=== PATIENT | female | born 1985 | race Caucasian/White ===

== ENCOUNTER 2021-03-20 15:22 | Outpatient (CLI) | payer BC | END 2021-03-20 15:23 | disposition home or self-care (01) | LOC: LAB 15:22 | PROVIDERS: ATTEND Nurse Practitioner Obstetrics & Gynecology | DX: O03.9 Complete or unspecified spontaneous abortion without complication (principal) | CPT/HCPCS: 36415; 84702 ==

== ENCOUNTER 2021-05-30 13:37 | Outpatient (CLI) | payer BC ==
[2021-05-30 16:09] LABS: MUDS CUTOFF CONCENTRATIONS CUTOFF CONC BELOW:
[2021-05-30 16:27] LABS: BILIRUBIN,URINE NEGATIVE (NEGATIVE); GLUCOSE, URINE (UA) NEGATIVE (NEGATIVE); KETONES,URINE (UA) NEGATIVE (NEGATIVE); LEUKOCYTE ESTERASE, URINE TRACE (NEGATIVE); NITRITE,URINE NEGATIVE (NEGATIVE); OCCULT BLOOD,URINE NEGATIVE (NEGATIVE); PROTEIN,URINE NEGATIVE (NEGATIVE); UROBILINOGEN,URINE 0.2 (NORMAL) E.U./dL (NORMAL)
[2021-05-30 16:46] LABS: BACTERIA,URINE None Seen /HPF (None Seen); CLARITY,URINE CLEAR (CLEAR); RBC,URINE None Seen /HPF (0-5); SQUAMOUS EPITHELIAL CELL,UR MOD Squamous (<= Few); WBC,URINE 0-3 /HPF (0-5)
[2021-05-30 16:47] LABS: AMPHETAMINE SCREEN,URINE NEGATIVE (NEGATIVE); BARBITURATE SCREEN,UR NEGATIVE (NEGATIVE); BENZODIAZEPINES SCREEN, URINE NEGATIVE (NEGATIVE); COCAINE SCREEN URINE NEGATIVE (NEGATIVE); METHADONE SCREEN, URINE NEGATIVE (NEGATIVE); METHAMPHETAMINES SCREEN, URINE NEGATIVE (NEGATIVE); OPIATE SCREEN, URINE NEGATIVE (NEGATIVE); OXYCODONE SCREEN, URINE NEGATIVE (NEGATIVE); PROPOXYPHENE SCREEN, URINE NEGATIVE (NEGATIVE); THC CANNABINOID SCREEN, URINE NEGATIVE (NEGATIVE); TRICYCLIC ANTIDEPRESSANT,URINE NEGATIVE (NEGATIVE)
== END 2021-05-30 23:59 | disposition home or self-care (01) ==
LOC: LAB.WC 13:37
PROVIDERS: ATTEND Obstetrics & Gynecology
DX: Z32.01 Encounter for pregnancy test, result positive (principal)
CPT/HCPCS: 80306; 81001; 87086

== ENCOUNTER 2021-07-03 13:55 | Outpatient (CLI) | payer BC ==
[2021-07-03 14:58] LABS: BASOPHILS % (AUTO) 0.3 %; EOSINOPHILS # (AUTO) 0.2 10^3/uL (0.0-0.7); EOSINOPHILS % (AUTO) 1.5 %; HCT - HEMATOCRIT 33.8 % (37.0-47.0); HGB - HEMOGLOBIN 11.4 g/dL (12.0-16.0); LYMPHOCYTES # (AUTO) 3.3 10^3/uL (1.5-3.5); LYMPHOCYTES % (AUTO) 30.9 %; MEAN CORPUSCULAR HEMOGLOBIN 31.8 pg (27.0-31.0); MEAN CORPUSCULAR HGB CONC 33.7 g/dL (32.0-36.0); MEAN CORPUSCULAR VOLUME 94.2 fL (81.0-99.0); MEAN PLATELET VOLUME 9.6 fL (7.9-10.8); MONOCYTES # (AUTO) 0.8 10^3/uL (0.0-1.0); MONOCYTES % (AUTO) 7.7 %; NEUTROPHILS # (AUTO) 6.2 10^3/uL (1.5-6.6); NEUTROPHILS % (AUTO) 59.2 %; PLT - PLATELET COUNT 336 10^3/uL (130-450); RED BLOOD COUNT 3.59 10^6/uL (4.20-5.40); RED CELL DISTRIBUTION WIDTH 12.9 % (12.0-15.0); WHITE BLOOD COUNT 10.5 x10^3/uL (4.8-10.8)
--- NOTE | 2021-07-03 18:21 | Ultrasound Report ---
PROCEDURE: OB First Trimester INDICATIONS: POSITIVE TEST OUTSIDE/PRIOR DATING DATA: Last menstrual period (LMP): 04/20/2021. LMP-based estimated date of delivery (TREVON): 01/25/2022. First dating scan (date and location): 07/03/2021. Estimated date of delivery (TREVON) from first dating scan: 01/08/2022. The below data below was generated using the TREVON of 01/08/2022 TECHNIQUE: Real-time scanning was performed of the fetus and maternal pelvic organs, with image documentation. COMPARISON: None FINDINGS: Embryo: Christoval-rump length measures 3.25 cm corresponding with a 10 week 1 day gestation. Heart rate: 173 bpm small subchorionic bleed noted measuring 1.2 x 0.7 x 1.0 cm. Measurement variability in dating: +/- 4 weeks by LMP, +/- 7 days by mean sac diameter (use before 6 weeks gestation if crown-rump length not able to be measured), +/- 5 days by crown-rump length (6-12 weeks gestation). Maternal organs: Small anterolateral left uterine fibroid noted 1.5 x 1.4 cm. There is a right sided corpus luteum cyst measuring 2.0 cm. No adnexal mass. IMPRESSION: Single live intrauterine corresponding with a 10 week 1 day gestation Small subchorionic bleed measures 1.2 x 0.7 cm. Incidental small left uterine fibroid 1.5 cm Reviewed by: Mode Frausto MD on 07/03/2021 5:19 PM [facility] Approved by: Mode Frausto MD on 07/03/2021 5:19 PM [facility] Station ID: [id number]
[2021-07-04 11:56] LABS: HEPATITIS B SURFACE ANTIGEN NON-REACTIVE (NON-REACTIVE); HEPATITIS C ANTIBODY NON-REACTIVE (NON-REACTIVE)
[2021-07-04 16:41] LABS: HIV AG/AB 4TH GEN NON-REACTIVE (NON-REACTIVE)
== END 2021-07-03 13:56 | disposition home or self-care (01) ==
LOC: DI 13:55
PROVIDERS: ATTEND Obstetrics & Gynecology
DX: O20.8 Other hemorrhage in early pregnancy (principal); O34.11 Maternal care for benign tumor of corpus uteri, first trimester; D25.9 Leiomyoma of uterus, unspecified; Z3A.10 10 weeks gestation of pregnancy; Z36.89 Encounter for other specified antenatal screening
CPT/HCPCS: 36415; 85025; 86592; 86762; 86787; 86803; 86850; 86900; 86901; 87340; 87389

== ENCOUNTER 2021-07-10 08:00 | Outpatient (CLI) | payer BC ==
[2021-07-11 22:53] LABS: CHLAMYDIA TRACHOMATIS DNA NEGATIVE (NEGATIVE); NEISSERIA GONORRHOEAE DNA NEGATIVE (NEGATIVE); TRICHOMONAS VAGINALIS DNA NEGATIVE (NEGATIVE)
== END 2021-07-10 23:59 | disposition home or self-care (01) ==
LOC: LAB.R 08:00
PROVIDERS: ATTEND Obstetrics & Gynecology
DX: Z36.89 Encounter for other specified antenatal screening (principal)
CPT/HCPCS: 87491; 87591; 87661

== ENCOUNTER 2021-07-12 09:00 | Outpatient (CLI) | payer SELFPAY | END 2021-07-12 09:01 | disposition home or self-care (01) | LOC: LAB 09:00 | PROVIDERS: ATTEND Obstetrics & Gynecology | DX: O09.521 Supervision of elderly multigravida, first trimester (principal) | CPT/HCPCS: 36415 ==

== ENCOUNTER 2021-08-08 14:29 | Outpatient (CLI) | payer BC ==
[2021-08-08 20:04] LABS: ESTIMATED AVERAGE GLUCOSE 91 mg/dL (70-100); HEMOGLOBIN A1c% 4.8 % (4.27-6.07)
== END 2021-08-08 14:30 | disposition home or self-care (01) ==
LOC: LAB 14:29
PROVIDERS: ATTEND Obstetrics & Gynecology
DX: O99.280 Endocrine, nutritional and metabolic diseases complicating pregnancy, unspecified trimester (principal); E84.9 Cystic fibrosis, unspecified
CPT/HCPCS: 36415; 81599; 82105; 83036

== ENCOUNTER 2021-09-08 08:57 | Outpatient (CLI) | payer BC ==
--- NOTE | 2021-09-09 15:18 | Ultrasound Report ---
PROCEDURE: OB Detailed Eval INDICATIONS: SUPERVISION OF NORMAL OUTSIDE/PRIOR DATING DATA: Last menstrual period (LMP): 04/20/2021. LMP-based estimated date of delivery (TREVON): 01/25/2022. First dating scan (date and location): 07/03/2021. Estimated date of delivery (TREVON) from first dating scan: 01/22 6-22. The below data below was generated using the ultrasound derived TREVON of 01/28/2022 TECHNIQUE: Real-time scanning was performed of the fetus, with image documentation and biometric measurements. COMPARISON: 07/03/2021. FINDINGS: General: A single living intrauterine gestation is present. Presentation: Breech Placenta: Placental position is right posterior, without previa. Amniotic fluid index: 10.8 cm, within normal limits for gestational age. Largest pocket measures 2. 9 cm. heart rate: 153 beats per minute. Maternal cervical canal: 5 cm long; normal length is 2.5 cm or more. There is a probable corpus luteal cyst within the right ovary measuring up to 1.4 cm. biometrics: Biparietal diameter: 4.5 cm, 19 weeks 4 days Head circumference: 17 cm, 19 weeks 4 days Abdominal circumference: 15.3 cm, 20 weeks 3 days Femur length: 2.9 cm, 19 weeks 0 days Estimated gestational age from initial scan: 19 weeks 5 days. Composite gestational age from present scan: 19 weeks 4 days. Estimated weight and percentile: 314 g corresponding to the 50th percentile Measurement variability in biometric dating: +/- 10 days from 12-20 weeks gestation, +/- 2 weeks from 20-30 weeks gestation, +/- 3 weeks at 30 weeks gestation or later. Anatomic survey: Neuro: There are small bilateral choroid plexus cysts, measuring up to 1.3 x 0.5 x 0.5 cm on the rig ht and 0.5 x 0.5 x 0.3 cm on the left. Ventricles are normal at less than 10 mm. Cisterna magna is n ormal at 3-11 mm. Cerebellum is normal in size and morphology. Nuchal skin fold: Normal at less than 6 mm between 14 and 20 weeks gestational age. Face: Nose and lips, facial profile are normal. Spine: No evidence for spina bifida. Heart: 4-chambered heart is present, with normal ventricular outflow tracts. Diaphragm: Diaphragm is intact. Stomach: Left-sided stomach is present. Kidneys: No hydronephrosis. Normal is less than 5 mm in 2nd trimester, less than 7 mm in 3rd trimester. Cord: 3 vessel cord has orthotopic insertion. Bladder: Normal in size. Extremities: All 4 extremities are visualized. IMPRESSION: 1. Single living intrauterine demonstrating appropriate interval growth with estimated feta l weight at the 50th percentile. 2. Small bilateral choroid plexus cysts demonstrated. The findings are nonspecific and may be seen in normal pregnancies but have been described in association with trisomy. Recommend correlation clinic ally and cell free DNA testing if indicated. Reviewed by: Say Tai MD on 09/09/2021 2:17 PM [facility] Approved by: Say Tai MD on 09/09/2021 2:17 PM [facility] Station ID: [id number]
== END 2021-09-08 08:58 | disposition home or self-care (01) ==
LOC: DI 08:57
PROVIDERS: ATTEND Obstetrics & Gynecology
DX: Z36.89 Encounter for other specified antenatal screening (principal); O35.0XX0 Maternal care for (suspected) central nervous system malformation in fetus, not applicable or unspecified; Z3A.19 19 weeks gestation of pregnancy

== ENCOUNTER 2021-11-13 14:26 | Outpatient (CLI) | payer BC ==
[2021-11-13 15:17] LABS: % IRON SATURATION 26 % (20-50); IRON 123 ug/dL (28-170); TOTAL IRON BINDING CAPACITY 469 ug/dL (250-450); TRANSFERRIN 335 mg/dL (192-382)
[2021-11-13 15:22] LABS: THYROID STIMULATING HORMONE 2.89 uIU/mL (0.34-5.60)
[2021-11-13 15:28] LABS: FERRITIN 12.6 ng/mL (11.0-306.8)
== END 2021-11-13 14:27 | disposition home or self-care (01) ==
LOC: LAB 14:26
PROVIDERS: ATTEND Obstetrics & Gynecology
DX: R53.81 Other malaise (principal); R53.83 Other fatigue
CPT/HCPCS: 36415; 82728; 83540; 84443; 84466

== ENCOUNTER 2021-11-18 11:41 | Outpatient (CLI) | payer BC ==
--- NOTE | 2021-11-18 12:10 | PROVIDER PROGRESS NOTE ---
- HPI Chief Complaint: Vaginal bleeding (Is with complaints of vaginal spotting which she noted last night. She reports bright red blood. The bleeding was light and less than a menstrual period. She reports associated abdominal cramping with nausea and vomiting. She denies leakage of fluid. She notes positive movement.) Current : Vital Signs Temperature 98.4 F 11/18/21 11:53 Heart Rate 89 11/18/21 11:53 Respiratory Rate 18 11/18/21 11:53 Blood Pressure 113/72 11/18/21 11:53 O2 Saturation 100 11/18/21 11:53 Temperature 98.4 F 11/18/21 11:53 Heart Rate 89 11/18/21 11:53 Respiratory Rate 18 11/18/21 11:53 Blood Pressure 113/72 11/18/21 11:53 O2 Saturation 100 11/18/21 11:53 - Exam General- no acute distress Respiratoryno respiratory distress Abdomen soft nontender gravid Sterile speculum examcervix visibly closed small amount of dark brown discharge noted in the vaginal vault. No bright red blood noted. FFN and wet prep sent. - Procedures OB Procedure Performed: NST Diagnosis/Indication for NST: Other (vaginal bleeding) NST Procedure: heart rate baseline-150 beats per minutes Moderate variability Accelerations 15x15 Decelerations none Contractions none NST reactive and reassuring Service Date of procedure: 11/18/21 - Plan Plan: 36-year-old G3, P1 at 30 weeks 2 days who presents with complaints of vaginal spotting. #Vaginal bleeding in pregnancysterile speculum exam with brown discharge noted in the vagina. Rh+. FFN and wet prep sent. Urinalysis pending. No contractions on toco. External monitor reactive and reassuring. USG wnl. Wet prep with clue cells. Bacteruria noted. Flagyl and macrobid RX sent.
[2021-11-18 12:59] LABS: BILIRUBIN,URINE NEGATIVE (NEGATIVE); GLUCOSE, URINE (UA) NEGATIVE (NEGATIVE); KETONES,URINE (UA) NEGATIVE (NEGATIVE); LEUKOCYTE ESTERASE, URINE NEGATIVE (NEGATIVE); NITRITE,URINE NEGATIVE (NEGATIVE); OCCULT BLOOD,URINE TRACE-LYSE (NEGATIVE); PROTEIN,URINE NEGATIVE (NEGATIVE); UROBILINOGEN,URINE 0.2 (NORMAL) E.U./dL (NORMAL)
[2021-11-18 13:05] LABS: BACTERIA,URINE Few /HPF (None Seen); CLARITY,URINE SL. CLOUDY (CLEAR); RBC,URINE 0-5 /HPF (0-5); SQUAMOUS EPITHELIAL CELL,UR MOD Squamous (<= Few); WBC,URINE 0-3 /HPF (0-5)
[2021-11-18 13:06] LABS: AMORPHOUS SEDIMENT,UR Few /LPF
[2021-11-18 14:29] VITALS: BP 96/58
--- NOTE | 2021-11-18 15:18 | Ultrasound Report ---
PROCEDURE: OB Limited INDICATIONS: vaginal bleeding/rule out placental abruption, ROMERO OUTSIDE/PRIOR DATING DATA: Last menstrual period (LMP): 04/20/2021. LMP-based estimated date of delivery (TREVON): 01/25/2022. First dating scan (date and location): 07/03/2021. Estimated date of delivery (TREVON) from first dating scan: 01/28/2022. The below data below was generated using the ultrasound derived TREVON of 01/28/2022 TECHNIQUE: Real-time scanning was performed of the fetus, with image documentation. COMPARISON: 07/03/2021, 09/08/2021. FINDINGS: A single living intrauterine gestation is present. Presentation: Cephalic Placenta: Placental position is posterior, without previa. No periplacental fluid collections to sugg est abruption. Amniotic fluid index: 17.0 cm, within normal limits for gestational age. heart rate: 157 beats per minutes. Maternal cervical canal: 3.9 cm long; normal length is 2.5 cm or more. Estimated gestational age from initial scan: 29 weeks 6 days. IMPRESSION: 1. Single living intrauterine demonstrated in cephalic presentation. 2. No evidence of placental abruption. 3. Amniotic fluid index within normal limits. Reviewed by: Say Tai MD on 11/18/2021 3:17 PM PST Approved by: Say Tai MD on 11/18/2021 3:17 PM PST Station ID: [id number]
== END 2021-11-18 14:50 | disposition home or self-care (01) ==
LOC: WFO 11:41 → FBP 11:43 → WFO 14:50
PROVIDERS: ATTEND Obstetrics & Gynecology
DX: O26.853 Spotting complicating pregnancy, third trimester (principal); R82.71 Bacteriuria; Z3A.30 30 weeks gestation of pregnancy
CPT/HCPCS: 36415; 81001; 82731; 87086; 87210; 99214

== ENCOUNTER 2021-11-27 15:05 | Outpatient (CLI) | payer BC ==
[2021-11-29 17:29] LABS: BACTERIAL VAGINOSIS DNA NEGATIVE (NEGATIVE); CANDIDA GLABRATA DNA NEGATIVE (NEGATIVE); CANDIDA GROUP DNA NEGATIVE (NEGATIVE); CANDIDA KRUSEI DNA NEGATIVE (NEGATIVE); TRICHOMONAS VAGINALIS DNA NEGATIVE (NEGATIVE)
== END 2021-11-27 15:06 | disposition home or self-care (01) ==
LOC: LAB 15:05
PROVIDERS: ATTEND Obstetrics & Gynecology
DX: N76.0 Acute vaginitis (principal)
CPT/HCPCS: 87661; 87801

== ENCOUNTER 2022-01-01 08:00 | Outpatient (CLI) | payer BC | END 2022-01-01 23:59 | LOC: LAB.R 08:00 | PROVIDERS: ATTEND Obstetrics & Gynecology | DX: Z36.85 Encounter for antenatal screening for Streptococcus B (principal) | CPT/HCPCS: 87797 ==

== ENCOUNTER 2022-01-29 01:29 | Inpatient (IN) | payer BC ==
[2022-01-29] MEDS ORDERED: SODIUM CHLORIDE FLUSH 0.9% 10 ML SYRINGE IVP PRN (01:39)
[2022-01-29] MEDS ORDERED: CARBOPROST TROMETHAMINE 250 MCG/ML AMP IM PRN (01:39)
[2022-01-29] MEDS ORDERED: OXYTOCIN 10 UNIT/ML VIAL IM PRN (01:39)
[2022-01-29] MEDS ORDERED: METHYLERGONOVINE 0.2 MG/ML VIAL IM PRN (01:39)
[2022-01-29] MEDS ORDERED: LIDOCAINE-MPF 1% 30 ML VIAL ID PRN (01:39)
[2022-01-29] MEDS ORDERED: TERBUTALINE 1 MG/ML VIAL SUBQ PRN (01:39)
[2022-01-29] MEDS ORDERED: LABETALOL 20 MG/4 ML SYRINGE IVP PRN (01:39)
[2022-01-29] MEDS ORDERED: miSOPROStoL 200 MCG TABLET PR PRN (01:39)
[2022-01-29] MEDS ORDERED: hydrALAZINE INJ 20 MG/ML VIAL IVP PRN (01:39)
[2022-01-29] MEDS ORDERED: NIFEdipine 10 MG CAPSULE PO PRN (01:39)
[2022-01-29] MEDS ORDERED: fentaNYL 100 MCG/2 ML VIAL IVP PRN (01:39)
[2022-01-29] MEDS ORDERED: TRANEXAMIC ACID IN NACL 1,000 MG/100 ML BAG IV PRN (01:39)
[2022-01-29] MEDS ORDERED: miSOPROStoL 200 MCG TABLET BC PRN (01:39)
[2022-01-29] MEDS ORDERED: ACETAMINOPHEN 500 MG TABLET PO PRN (01:39)
[2022-01-29 01:45] LABS: BASOPHILS % (AUTO) 0.4 %; EOSINOPHILS # (AUTO) 0.1 10^3/uL (0.0-0.7); EOSINOPHILS % (AUTO) 1.3 %; HGB - HEMOGLOBIN 13.7 g/dL (12.0-16.0); LYMPHOCYTES # (AUTO) 3.1 10^3/uL (1.5-3.5); LYMPHOCYTES % (AUTO) 27.7 %; MEAN CORPUSCULAR HEMOGLOBIN 32.6 pg (27.0-31.0); MEAN CORPUSCULAR HGB CONC 34.3 g/dL (32.0-36.0); MEAN CORPUSCULAR VOLUME 95.2 fL (81.0-99.0); MONOCYTES # (AUTO) 1.1 10^3/uL (0.0-1.0); MONOCYTES % (AUTO) 9.8 %; NEUTROPHILS # (AUTO) 6.7 10^3/uL (1.5-6.6); NEUTROPHILS % (AUTO) 60.1 %; PLT - PLATELET COUNT 323 10^3/uL (130-450); RED CELL DISTRIBUTION WIDTH 13.3 % (12.0-15.0); WHITE BLOOD COUNT 11.1 x10^3/uL (4.8-10.8)
[2022-01-29] MEDS ORDERED: LACTATED RINGERS 1,000 ML ONE (01:49)
--- NOTE | 2022-01-29 01:49 | HISTORY & PHYSICAL EXAMINATION ---
Admit History - Mother's Labs Mother's Blood Type: positive: O Mother's RH: positive: Positive GBS: positive: Group B Step Negative Rubella Status: positive: Immune - Other Maternal History Other Maternal History: ID: Patient is a 36 yo at 40+4 wga here in active labor. HPI: Patient presents in active labor. Requests epidural on presentation. Initial SVE 4.5/C/-2 per RN exam. GBS negative. Uncomplicated course. Has unclear hx of atypical cystic fibrosis, asymptomatic. PNC: LMP: 04/20/2021 TREVON by LMP:01/25/2022 Initial U/S:07/03/2021 @10w1d, c/w LMP TREVON (01/28/2022) FINAL TREVON: 01/25/2022 Unclear hx of atypical cystic fibrosis; asymptomatic -FOB s/p carrier testing -Have not received records yet. -No hx of PNA or respiratory illness Low back/SI joint pain: -Attempting maternity support belt, Tylenol, heating pads on low back. -Good response with [place] [facility] Vertex by [facility] at 36 wga O pos/Rubella immune VZV:immune Genetic testing: HARMONY 46 XY- Negative AFP wnl Declined carrier screening FAS: posterior, 3VC, 50%ile, 5 cm Cl, choroid plexus cysts Glucola: opted to profile. Only one pp of 140 in a month of monitoing. OK to DC Influenza: 08/08/21 COVID: J&J 02/2021; got booster vaccine late Oct- Pfizer TDAP: 11/13/2021 given GBS : negative @ 36.4 HSV: Denies Breast pump Rx: given 10/14/2021 MOD: anticipate pp contraception: TBD pap:summer 2019 WNL per patient Past Medical History: Cervical dysplasia Atypical cystic fibrosis. Skin cancer Past Surgical History: [facility] 2004 Excision of skin cancer Family History Summary: Family History of Arthritis for Mother - Entered On: 05/30/2021 Family History of Other Medical Problems for Mother, multiple autoimmune diseases - Entered On: 05/30/2021 Legacy Family History Notes: Diabetes: Maternal grandfather. CVD: Maternal grandfather. Cancer: Maternal grandfather, skin. Hypertension: Denies. Social History Summary: The patient lives in [place] with her and son. 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 T: None. E: Two glasses of wine per week D: None. Safe at home. ROS: As per HPI, otherwise remaining systems are negative. PE: VS: 113/72 88 10% GEN: Discomfort 2/2 labor HEENT: NCAT CV: RRR RESP: nl effort, CTAB ABD: gravid, S&NT between ctx PSYCH: appropriate affect NEURO: A&O SVE 4.5/C/-1 EFM 120 mod mushtaq 15x15 accels isolated early decel TOCO: Q4 min A/P: 36 yo at 40+4 wga in active labor LABOR: Expectant management -Augment with pitocin as indicated -AROM as indicated -Anticipate FWB: Vertex, GBS neg, well grown, Cat I tracing PAIN: Desires epidural; okay to place when anesthesia available -Nitrous oxide until epidural in place Anticipate ETA: Epidural placed at approximately 2:15. Patient comfortable Meds/Allgy - Home Medications Home Medications: Ambulatory Orders Medication Instructions Recorded Confirmed Nitrofurantoin [Macrobid] 100 mg PO BID 7 Days #14 tab 11/18/21 metroNIDAZOLE [Flagyl] 500 mg PO BID 7 Days #14 tablet 11/18/21 - Allergies Allergies/Adverse Reactions: Allergies Allergy/AdvReac Type Severity Reaction Status Date / Time No Known Drug Allergies Allergy Verified 11/18/21 12:56
[2022-01-29] MEDS ORDERED: LACTATED RINGERS 1,000 ML IV SCH (02:00)
[2022-01-29] MEDS ORDERED: ROPIVACAINE 0.2% 200 MG/100 ML BAG EP ONE (02:10)
[2022-01-29] MEDS ORDERED: ePHEDrine 50 MG/ML VIAL IVP PRN (02:34)
[2022-01-29] MEDS ORDERED: NALOXONE 0.4 MG/ML VIAL IVP PRN (02:34)
[2022-01-29] MEDS ORDERED: METOCLOPRAMIDE 10 MG/2 ML VIAL IVP PRN (02:34)
[2022-01-29] MEDS ORDERED: ONDANSETRON 4 MG/2 ML VIAL IVP PRN (02:34)
[2022-01-29] MEDS ORDERED: NALBUPHINE 10 MG/ML AMP IVP PRN (02:34)
[2022-01-29] MEDS ORDERED: diphenhydrAMINE INJ 50 MG/ML VIAL IVP PRN (02:34)
[2022-01-29] MEDS ORDERED: ROPIVACAINE 0.2% 200 MG/100 ML BAG EP PRN (02:34)
--- NOTE | 2022-01-29 02:40 | ANESTHESIA ---
Pre-Anesthesia VS, & Labs - Diagnosis term labor, IUP - Procedure Epidural for Height: 5 ft 4 in - NPO Last Fluid Intake: t/o day Last Food Intake: dinner - Is Patient ?: Yes - Lab Results Current Lab Results: Laboratory Tests 01/29/22 01:30: WBC 11.1 H, RBC 4.20, Hgb 13.7, Hct 40.0, MCV 95.2, MCH 32.6 H, MCHC 34.3, RDW 13.3, Plt Count 323, MPV 10.0, Neut # (Auto) 6.7 H, Lymph # (Auto) 3.1, [place] # (Auto) 1.1 H, Eos # (Auto) 0.1, Baso # (Auto) 0.0, Absolute Nucleated RBC 0.00, Nucleated RBC % 0.0 01/29/22 01:30: Blood Type O POSITIVE, Antibody Screen NEGATIVE Lab results reviewed: Yes Fish Bones: 01/29/22 01:30 Home Medications and Allergies Active Medications Acetaminophen (Acetaminophen 500 Mg Tablet) 1,000 mg PO Q8H PRN PRN Reason: Pain or Fever > 38C (100.4F) Carboprost Tromethamine (Carboprost Tromethamine 250 Mcg/Ml Amp) 250 mcg IM .ONCE PRN PRN Reason: Hemorrhage Diphenhydramine HCl (Diphenhydramine Inj 50 Mg/Ml Vial) 12.5 - 25 mg IVP Q6HR PRN PRN Reason: ITCHING Ephedrine Sulfate (Ephedrine 50 Mg/Ml Vial) 5 mg IVP Q5M PRN PRN Reason: For SBP<100;give until SBP>100 Fentanyl (Fentanyl 100 Mcg/2 Ml Vial) 50 mcg IVP Q1H PRN PRN Reason: Severe Pain (score 7-10) Hydralazine HCl (Hydralazine Inj 20 Mg/Ml Vial) 5 - 20 mg IVP Q20M PRN; Protocol PRN Reason: SBP> or= 160 OR DBP> or= 110 Oxytocin/Sodium Chloride (Pitocin/Sodium Chloride) 500 mls @ 999 mls/hr IV PRN PRN; Protocol PRN Reason: POST- HEMORR PREVENTION Tranexamic Acid (Tranexamic 1,000 Mg/100ml-Nacl) 1,000 mg in 100 mls @ 600 mls/hr IV Q30M PRN PRN Reason: EBL >1200mL and within 3hr Lactated Ringer's (Lr) 1,000 mls @ 75 mls/hr IV .[id number] [facility] Last Admin: 01/29/22 01:40 Dose: 75 mls/hr Ropivacaine (Naropin 0.2%) 200 mg in 100 mls @ 0 mls/hr EP PRN PRN; Protocol PRN Reason: PAIN Labetalol HCl (Labetalol 20 Mg/4 Ml Syringe) 20 - 80 mg IVP Q10M PRN; Protocol PRN Reason: SBP> or= 160 OR DBP> or= 110 Lidocaine HCl (Lidocaine-Mpf 1% 30 Ml Vial) 30 ml ID ONCE PRN PRN Reason: PERINEAL REPAIR Stop: 01/30/22 01:39 Methylergonovine Maleate (Methylergonovine 0.2 Mg/Ml Vial) 0.2 mg IM .ONCE PRN PRN Reason: Hemorrhage Metoclopramide HCl (Metoclopramide 10 Mg/2 Ml Vial) 10 mg IVP Q6HR PRN PRN Reason: Nausea / Vomiting Misoprostol (Misoprostol 200 Mcg Tablet) 600 mcg BC .ONCE PRN PRN Reason: Hemorrhage Misoprostol (Misoprostol 200 Mcg Tablet) 800 mcg CA .ONCE PRN PRN Reason: Hemorrhage Nalbuphine HCl (Nalbuphine 10 Mg/Ml Amp) 2.5 - 5 mg IVP Q4H PRN PRN Reason: ITCHING Naloxone HCl (Naloxone 0.4 Mg/Ml Vial) 0.1 mg IVP Q2M PRN PRN Reason: RR<8 Nifedipine (Nifedipine 10 Mg Capsule) 10 - 20 mg PO Q20M PRN; Protocol PRN Reason: SBP> or= 160 OR DBP> or= 110 Ondansetron HCl (Ondansetron 4 Mg/2 Ml Vial) 4 mg IVP Q6HR PRN PRN Reason: Nausea / Vomiting Oxytocin (Oxytocin 10 Unit/Ml Vial) 10 unit IM .ONCE PRN PRN Reason: Step One if no IV access. Sodium Chloride (Sodium Chloride Flush 0.9% 10 Ml Syringe) 10 ml IVP PRN PRN PRN Reason: NEEDED PER PROVIDER ORDERS Sodium Chloride (Sodium Chloride Flush 0.9% 10 Ml Syringe) 10 ml IVP Q8H [facility] Terbutaline Sulfate (Terbutaline 1 Mg/Ml Vial) 0.25 mg SUBQ .ONCE PRN PRN Reason: Tachystole Allergies/Adverse Reactions: Allergies Allergy/AdvReac Type Severity Reaction Status Date / Time No Known Drug Allergies Allergy Verified 11/18/21 12:56 Anes History & Medical History - Anesthetic History Anesthesia Complications: reports: No previous complications Family history of Anesthesia Complications: Denies Family history of Malignant Hyperthermia: Denies - Medical History Pulmonary: reports: Cystic fibrosis (atypical) History of Cancer?: Yes (hx skin cancer) - Surgical History Gynecologic: reports: Other ([facility] 2004) Exam General: Alert, Oriented x3, Cooperative Dental: WNL Mouth Openin Fingerbreadth Neck Mobility: Normal Mallampati classification: II Respiratory: No respiratory distress Cardiovascular: Regular rate Neurological: Normal speech Mental/Cognitive Status: Alert/Oriented X3, Normal for patient Cognitive Status: Within normal limits Plan Anesthesia Type: Epidural Consent for Procedure(s) Verified and Reviewed: Yes Code Status: Attempt Resuscitation ASA classification: 2-Mild systemic disease Is this case an emergency?: No
[2022-01-29] MEDS: OXYTOCIN/SODIUM CHLORIDE 500 ML IV PRN ×2 (03:55→04:38)
[2022-01-29] MEDS ORDERED: SIMETHICONE CHEW 80 MG TABLET PO PRN (04:50)
[2022-01-29] MEDS ORDERED: ONDANSETRON ODT 4 MG TABLET TL PRN (04:50)
[2022-01-29] MEDS ORDERED: HYDROCORTISONE 1% CREAM 28 GM TUBE PR PRN (04:50)
--- NOTE | 2022-01-29 04:54 | DELIVERY NOTE ---
Delivery Note - Labor Labor: positive: Spontaneous - Presentation Presentation: positive: Vertex, DARON - right occiput anterior - Nuchal Cord Nuchal Cord: positive: None - Amniotic Fluid Description Amniotic Fluid Description: positive: Bloody - Laceration Laceration: positive: 1st degree, Perineal, Other (clitoral) - Suture Suture Type: positive: Vicryl Suture Size: positive: 4-0, Other (4-0 for -clitoral 3-0 for perineal) - Delivery Outcome Delivery Outcome: positive: Livebirth - Superior Superior: positive: Placed in direct skin contact with mother, Bulb syringe, Stimulated, Warmed, [place] used Superior sex: positive: Male : Apgars 9/9 : BW 4022g - Cord Cord: positive: 3 vessels - Placenta Placenta: positive: Intact, Expressed - Estimated Blood Loss Estimated Blood Loss (in cc): 500 (QBL not performed) - Post Delivery Events Post Delivery Events: positive: No post delivery events - Delivery Comments (Free Text/Narrative) Delivery Comments (Free Text/Narrative): STAGE I: Patient is a 36 yo who presented at 40+4 wga in active labor. Uncomplicated course. Has unclear hx of atypical cystic fibrosis, asymptomatic Initial SVE 4.5/C/-2 per RN exam. GBS negative. Epidural for pain management. Presented at 1:10 am. Complete at 3:26 am. AROM at 3:32 am. Clear fluid. Cat I tracing throughout Stage I labor. Duration of Stage I labor 3:11. STAGE II: Requested to labor down but then felt pressure and started to push. Delivered at 3:54 with pushing over 3 contractions. Male deliverd form R OA presentation with easy delivery of anterior shoulder. No nuchal cord. Delivered to maternal chest. Cord clamped x2 and cut after pulsations had ceased. Apgars 9/9 and BW 4022. Duration Stage II labor 28 min. STAGE III: Placenta delivered easily with manual expression at 8 minutes post delivery. Examined and was intact. Patient had a first degree periclitoral repair that had greater than expected blood loss. It was repaired with 4-0 Vicryl with 2 figure of 8 sutures. A small perineal 1st degree laceration was also repaired with 3-0 Vicryl. Misoprstol 600 mcg BC was given to aid with uterine atony. Good hemostasis noted. Total EBL 500 cc.
[2022-01-29] MEDS: ACETAMINOPHEN 500 MG TABLET PO PRN ×2 (07:53→16:12)
[2022-01-29] MEDS: IBUPROFEN 600 MG TABLET PO SCH ×4 (07:53→20:03)
[2022-01-29] MEDS: SODIUM CHLORIDE FLUSH 0.9% 10 ML SYRINGE IVP SCH ×2 (08:01→14:25)
[2022-01-29] MEDS: LACTATED RINGERS 1,000 ML IV SCH ×2 (08:02→14:25)
[2022-01-30] MEDS: IBUPROFEN 600 MG TABLET PO SCH ×2 (01:15→07:59)
--- NOTE | 2022-01-30 10:23 | Discharge Plan ---
Discharge Plan Problem Reviewed?: Yes Disposition: 01 Home, Self Care Condition: Good Activity Restrictions: Additional Comments (see below) Shower Restrictions: Yes (no hot tubs or tub baths for 4 weeks) Additional Instructions or Follow Up instructions: Nothing in the vagina for 6 weeks: No intercourse, tampons, douching Call for: -Fever greater than 100.5 -Pain that does not improve with pain medication -Heavy bleeding in which you are soaking a pad an hour for 2 hours in a row -Pain in the legs (especially one sided), swelling in one leg and not the other, or difficulty/pain with breathing. No tub baths or hot tubs for 4 weeks DISCHARGE MEDICATIONS: Ibuprofen 600 mg by mouth every 6 hours as needed for pain Acetaminophen 500-1000 mg by mouth every 8 hours as needed for pain Docusate 100-200 mg by mouth twice a day as needed for constipation No Smoking: If you smoke, Please STOP! Call for help.
[2022-01-30 11:58] VITALS: BP 96/65
--- NOTE | 2022-01-30 15:33 | Labor Flowsheet ---
Labor Flowsheet Datetime Report Generated by CPN: 01/30/2022 15:33 Datetime: 01/30/2022 11:56 VITAL SIGNS NBP Sys/Veronica/Mean (mmHg): 96 : 65 : 72 Pulse: 77 Datetime: 01/29/2022 05:30 Epidural Procedure: Completed (Annotations: Epidural catheter removed with blue tip intact ) Datetime: 01/29/2022 05:25 SpO2 (%): 100 Datetime: 01/29/2022 05:15 Stage of : Recovery PAIN Pain Scale: 0 Pain Type: Contraction Datetime: 01/29/2022 04:40 Respirations: 20 Datetime: 01/29/2022 04:24 Temperature (C): 36.6 Temperature Route: Oral Datetime: 01/29/2022 04:20 Cervical Ripening Agents: Cytotec @ (Annotations: 600mcg BC for mod to heavy lochia) Datetime: 01/29/2022 04:03 Comments: Spontaneous delivery of intact placenta Datetime: 01/29/2022 04:00 Pain Presence: None/Denies Anesthesia Level Check: T6- Xyphoid Datetime: 01/29/2022 03:55 MEDICATIONS Pitocin (milliunits): Started @ (Annotations: IV Pitocin begun after delivery of male infant) Datetime: 01/29/2022 03:54 Stage 2 Comments: of viable male infant Datetime: 01/29/2022 03:51 STAGE 2 Pushing: Coached on Pushing; Urge to Push Pushing Position: Pushing with Contractions; Pushing Left Side Pushing Progress: Descent with Pushing Datetime: 01/29/2022 03:50 UTERINE ACTIVITY Monitor Mode: External Monitor Interventions for UA: [place] Adjusted Frequency (min): 2-3 Quality: Strong Duration (sec): 60-90 Pattern: Normal: <= 5 Contractions in 10 Minutes Resting Tone (Palpate): Relaxed Contraction Comments: Has stronger urge to bear down; will begin to push. ASSESSMENT A Monitor Mode: External US FHR Baseline Rate : 140 FHR Baseline Changes: Baseline has increased from 120 to 140 with variable decels to 70-90s w/<10-2 0" to don of 70-80s with 10-25" return to 140BL Variability: Moderate 6-25 bpm Accelerations: 15X15 Decelerations: Variable LaborFlag: Labor Datetime: 01/29/2022 03:48 COMMUNICATION Communication: Provider at Bedside Provider Notified (Name): Dr Mackey at bedside for delivery Datetime: 01/29/2022 03:45 Actions for Decelerations: Sterile Vaginal Exam; Blood Pressure Category: Category II Datetime: 01/29/2022 03:42 Amniotic Fluid Color: Clear Amniotic Fluid Amount: Small Amniotic Fluid Odor: None Vaginal Bleeding: Normal Show Datetime: 01/29/2022 03:32 VAGINAL EXAM Dilatation (cm): 10.0 Effacement (%): 100 Station: 1 Exam by: Dr Mackey Membrane Status: Ruptured Membranes Ruptured Date/Time: 01/29/2022 03:32 Membranes Rupture Method: Artificial Datetime: 01/29/2022 03:27 Provider Reviewed Strip: Yes Strip Reviewed by: Narendra Notification Reason: Status; Labor Status; Membrane Status; Uterine Activity; Pain Datetime: 01/29/2022 03:20 TEACHING Instructional Method: Verbal; Patient Instructed; Family/Support Person Instructed; Verbalized Unde rstanding Plan of Care: Plan of Care Discussed; Vaginal Delivery; Labor Labor/Induction: Artificial Rupture of Membranes Datetime: 01/29/2022 03:01 Pain Location: Abdomen Pain Goal: 5 Pain Relief Measures: Epidural Given Pain Coping: Talking Through Contractions Datetime: 01/29/2022 02:57 Patient Position/Activity: Right Tilt Datetime: 01/29/2022 02:23 Epidural Procedure Other: Pump Started Datetime: 01/29/2022 02:10 ANESTHESIA Anesthesia Plans: Epidural Epidural Positioning: Sitting Anesthesia Comments: Time out Pain Management: Epidural Datetime: 01/29/2022 02:05 Medication Comments: Nitrous off per pt request, states she feels she can't breathe well with the m ask on. Will proceed with epidural at this time. Datetime: 01/29/2022 01:40 Unit Routine: [place] to Room; Call [place]; Bed; Visiting Policy; Unit Personnel; Monitoring; Me dications Datetime: 01/29/2022 01:34 Pain Assessment Comments: Requesting epidural MATERNAL ASSESSMENT Level of Consciousness: Alert DTR's/Clonus: DTRs 2+; No Clonus Headache: Denies Breath Sounds, Left: Clear and Equal Breath Sounds, Right: Clear and Equal Nausea/Vomiting: Present RUQ Epigastric Pain: Denies PATIENT CARE Oxygen Method: Room Air Comfort Measures: Breathing/Relaxation; Family Support
--- NOTE | 2022-01-30 22:22 | DISCHARGE SUMMARY ---
Discharge Summary Admit Date: 01/29/22 Discharge Date: 01/30/22 Discharging Provider: Narendra Condition at Discharge: Good Discharge Disposition: 01 Home, Self Care - DIAGNOSES Admission Diagnoses: IUP at 40+4 wga Active labor Discharge Diagnoses with Status of Each Condition: Same and delivery of term gestation - HPI History of Present Illness: ID: Patient is a 36 yo who presented at 40+4 wga in active labor. Patient presented in active labor. Requested epidural on presentation. Initial SVE 4.5/C/-2 per RN exam. GBS negative. Uncomplicated course. Has unclear hx of atypical cystic fibrosis, asymptomatic. PNC: LMP: 04/20/2021 TREVON by LMP:01/25/2022 Initial U/S:07/03/2021 @10w1d, c/w LMP TREVON (01/28/2022) FINAL TREVON: 01/25/2022 Unclear hx of atypical cystic fibrosis; asymptomatic -FOB s/p carrier testing -Have not received records yet. -No hx of PNA or respiratory illness Low back/SI joint pain: -Attempting maternity support belt, Tylenol, heating pads on low back. -Good response with [facility] by [facility] at 36 wga O pos/Rubella immune VZV:immune Genetic testing: HARMONY 46 XY- Negative AFP wnl Declined carrier screening FAS: posterior, 3VC, 50%ile, 5 cm Cl, choroid plexus cysts Glucola: opted to profile. Only one pp of 140 in a month of monitoing. OK to DC Influenza: 08/08/21 COVID: J&J 02/2021; got booster vaccine late Oct- Pfizer TDAP: 11/13/2021 given GBS : negative @ 36.4 HSV: Denies Breast pump Rx: given 10/14/2021 MOD: anticipate pp contraception: TBD pap:summer 2019 WNL per patient - HOSPITAL COURSE Hospital Course: STAGE I: Patient is a 36 yo who presented at 40+4 wga in active labor. Uncomplicated course. Has unclear hx of atypical cystic fibrosis, asymptomatic Initial SVE 4.5/C/-2 per RN exam. GBS negative. Epidural for pain management. Presented at 1:10 am. Complete at 3:26 am. AROM at 3:32 am. Clear fluid. Cat I tracing throughout Stage I labor. Duration of Stage I labor 3:11. STAGE II: Requested to labor down but then felt pressure and started to push. Delivered at 3:54 with pushing over 3 contractions. Male deliverd form DARON presentation with easy delivery of anterior shoulder. No nuchal cord. Delivered to maternal chest. Cord clamped x2 and cut after pulsations had ceased. Apgars 9/9 and BW 4022. Duration Stage II labor 28 min. STAGE III: Placenta delivered easily with manual expression at 8 minutes post delivery. Examined and was intact. Patient had a first degree periclitoral repair that had greater than expected blood loss. It was repaired with 4-0 Vicryl with 2 figure of 8 sutures. A small perineal 1st degree laceration was also repaired with 3-0 Vicryl. Misoprstol 600 mcg BC was given to aid with uterine atony. Good hemostasis noted. Total EBL 500 cc. course was uncomplicated. By PPD#1, mother and baby were meeting goals for discharge. - ALLERGIES Allergies/Adverse Reactions: Allergies Allergy/AdvReac Type Severity Reaction Status Date / Time No Known Drug Allergies Allergy Verified 11/18/21 12:56 - MEDICATIONS Home Medications: Ambulatory Orders Medication Instructions Recorded Confirmed Nitrofurantoin [Macrobid] 100 mg PO BID 7 Days #14 tab 11/18/21 metroNIDAZOLE [Flagyl] 500 mg PO BID 7 Days #14 tablet 11/18/21 - PHYSICAL EXAM AT DISCHARGE General Appearance: positive: No acute distress Neck: positive: Nml inspection Respiratory: positive: No respiratory distress, Breath sounds nml Cardiovascular: positive: Regular rate & rhythm Peripheral Pulses: positive: 2+ Abdomen: positive: Non-tender, Other (FF below umbi) Skin: positive: Color nml Extremities: positive: Non-tender, No pedal edema Neurologic/Psychiatric: positive: Oriented x3 - LABS Result Diagrams: 01/29/22 01:30 - FOLLOW UP Follow Up: [address] Mackey - TIME SPENT Time Spent in Discharge (Minutes): 30
== END 2022-01-30 14:55 | disposition home or self-care (01) | DRG 806 ==
LOC: WFO 01:29 → FBP 01:32
PROVIDERS: ADMIT Obstetrics & Gynecology; ATTEND Obstetrics & Gynecology
PROC: 0HQ9XZZ Repair Perineum Skin, External Approach (ICD-10-PCS; principal; 2022-01-29)
PROC: 10E0XZZ Delivery of Products of Conception, External Approach (ICD-10-PCS; 2022-01-29)
DX: O70.9 Perineal laceration during delivery, unspecified (principal); E84.9 Cystic fibrosis, unspecified; Z37.0 Single live birth; Z3A.40 40 weeks gestation of pregnancy; O99.284 Endocrine, nutritional and metabolic diseases complicating childbirth
CPT/HCPCS: 85025; 86850; 86900; 86901; A9270; J7120; 99215

== ENCOUNTER 2022-02-09 09:14 | Emergency (ER) | payer BC ==
[2022-02-09 09:51] LABS: RAPID STREP SCREEN Negative (Negative)
--- NOTE | 2022-02-09 10:39 | XRAY Report ---
PROCEDURE: Chest 2 View X-Ray INDICATIONS: cough TECHNIQUE: 2 view(s) of the chest. COMPARISON: None. FINDINGS: Surgical changes and devices: None. Lungs and pleura: No pleural effusions or pneumothorax. Lungs are clear. Mediastinum: Mediastinal contours are normal. Heart size is normal. Bones and chest wall: No suspicious bony abnormalities. Soft tissues appear unremarkable. IMPRESSION: No acute cardiopulmonary disease. Reviewed by: Federico Greer MD on 02/09/2022 9:38 AM [facility] Approved by: Federico Greer MD on 02/09/2022 9:38 AM [facility] Station ID: [id number]
[2022-02-09 11:19] VITALS: BP 105/69
--- NOTE | 2022-02-09 11:56 | ED Physician Documentation ---
PD HPI URI - Stated complaint Stated Complaint: CONGESTION - Chief complaint Chief Complaint: General - History obtained from History obtained from: Patient - History of Present Illness Timing - onset: How many weeks ago (3) Timing duration: Weeks (3) Timing details: Gradual onset, Still present, Waxing and waning Associated symptoms: Nasal congestion, Sore throat, Dry cough, Dyspnea. No: Fever Improves by: Rest, Medication Similar symptoms before: Has not had sx before Recently seen: Other (recent delivery of baby) - Additional information Additional information: 36-year-old female presents to the emergency department with a 3-week history of cough and congestion she is waking up at night coughing with a rattle in her chest. She has recently delivered her infant and symptoms preceded the delivery. She has had a negative COVID test 3 days ago. She indicates that she has had waxing and waning symptoms she has a bit of a sore throat associated with this and some postnasal drainage. She denies any sinus tenderness. 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 : None HEENT: None Psych: None Musculoskeletal: None Derm: None - Past Surgical History Past Surgical History: Yes /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: Other - Present Medications Home Medications: Ambulatory Orders Medication Instructions Recorded Confirmed Amox/Clav 875/125 [Augmentin] 1 each PO Q12H #20 tablet 02/09/22 - Allergies Allergies/Adverse Reactions: Allergies Allergy/AdvReac Type Severity Reaction Status Date / Time No Known Drug Allergies Allergy Verified 02/09/22 09:25 - Social History Does the pt smoke?: No Smoking Status: Never smoker Does the pt drink ETOH?: No Does the pt have substance abuse?: No - Immunizations Immunizations are current?: Yes PD ED PE NORMAL - Vitals Vital signs reviewed: Yes (Normal) - General General: Alert and oriented X 3, No acute distress, Well developed/nourished - HEENT HEENT: Atraumatic, PERRL, EOMI, Pharynx benign, Other (The right TM is erythematous along the umbo with some flattening signs appear mild left is clear) - Neck Neck: Supple, no meningeal sign, No bony TTP - Cardiac Cardiac: RRR, No murmur - Respiratory Respiratory: No respiratory distress, Clear bilaterally - Abdomen Abdomen: Soft, Non tender - Back Back: No CVA TTP, No spinal TTP - Derm Derm: Normal color, Warm and dry, No rash - Extremities Extremities: No deformity, No edema - Neuro Neuro: Alert and oriented X 3, 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, No motor deficit, No sensory deficit, Normal speech Eye Opening: Spontaneous Motor: Obeys Commands Verbal: Oriented GCS Score: 15 - Psych Psych: Normal mood, Normal affect Results - Vitals Vitals: Vital Signs - 24 hr 02/09/22 02/09/22 09:26 11:18 Temperature 36.9 C 36.9 C Heart Rate 78 83 Respiratory 16 16 Rate Blood Pressure 109/70 105/69 O2 Saturation 98 98 Oxygen O2 Source Room air - Labs Labs: Laboratory Tests 02/09/22 09:40 Group A Strep Rapid Negative PD MEDICAL DECISION MAKING - ED course Complexity details: considered differential, d/w patient ED course: 36-year-old female has had cough and congestion slight ear pain a rattle in her chest and this has been present for about 3 weeks with some undulation in her symptoms. On physical exam she does have mild inflammation of the right TM and this is the only finding of significance. She has a clear chest x-ray her lungs at the time of examination are clear. She does elicit a cough response with deep breath. I have discussed the patient treating the otitis and she would like to try this as it has been keeping her awake at night. Departure - Departure Disposition: 01 Home, Self Care Clinical Impression: Otitis media Qualifiers: Otitis media type: suppurative Chronicity: acute Laterality: right Recurrence: not specified as recurrent Spontaneous tympanic membrane rupture: without spontaneous rupture Qualified Code(s): H66.001 - Acute suppurative otitis media without spontaneous rupture of ear drum, right ear Condition: Stable Instructions: ED Otitis Media Acute Adult Follow-Up: [facility] [Provider Group] Prescriptions: Amox/Clav 875/125 [Augmentin] 1 each PO Q12H #20 tablet Comments: Katiana, today it looks like you have an infection in the right middle ear. The findings are subtle but this would explain the symptoms you are having over the past 3 weeks. Treatment of otitis is done with an antibiotic and I have E scribed some Augmentin to [facility] in [place].
== END 2022-02-09 12:09 | disposition home or self-care (01) ==
LOC: ED 09:14
DX: H66.001 Acute suppurative otitis media without spontaneous rupture of ear drum, right ear (principal); Z20.822 Contact with and (suspected) exposure to COVID-19
CPT/HCPCS: 87070; 87430; 99282; 99284

== ENCOUNTER 2022-06-23 15:54 | Outpatient (CLI) | payer BC | END 2022-06-23 15:55 | disposition home or self-care (01) | LOC: RT 15:54 | PROVIDERS: ATTEND Internal Medicine Pulmonary Disease | DX: E84.0 Cystic fibrosis with pulmonary manifestations (principal) | CPT/HCPCS: 94010 ==

== ENCOUNTER 2022-07-18 15:19 | Outpatient (CLI) | payer BC ==
--- NOTE | 2022-07-18 16:24 | CT Report ---
PROCEDURE: Sinuses INDICATIONS: ITS.REASON: CYSTIC FIBROSIS TECHNIQUE: Noncontrast 3.0 mm axial images acquired from the frontal sinuses to the mid-sella, with coronal and sagittal reformats. For radiation dose reduction, the following was used: automated exposure control , adjustment of mA and/or kV according to patient size. COMPARISON: None. FINDINGS: Image quality: Excellent. Maxillary Sinuses: There is moderate mucosal thickening seen within the right maxillary sinus. The r ight maxillary sinus is small in size. The left maxillary sinus demonstrates no significant abnormali ty. Ethmoid Air Cells: There is moderate mucosal thickening within the right ethmoid air cells anteriorly . The left ethmoid air cells appear clear. The right frontal sinus is almost completely nondeveloped, yet appears opacified. The left frontal sinus is unremarkable. Sphenoid Sinuses: No bony remodeling or destruction. Sinuses are clear. Frontal Sinuses: No bony remodeling or destruction. Sinuses are clear. Ostiomeatal Complexes: The right ostiomeatal complex appears to have been previously removed. The lef t ostiomeatal complex is unremarkable. Miscellaneous: Visualized intra-orbital contents are normal. No lee bullosa. There is mild to mo derate leftward nasal septal deviation. IMPRESSION: Chronic appearing right-sided paranasal sinus disease. Prior postoperative change with removal of the right ostiomeatal complex. Mild to moderate leftward nasal septal deviation. Reviewed by: Tristian Slater MD on 07/18/2022 3:23 PM [facility] Approved by: Tristian Slater MD on 07/18/2022 3:23 PM [facility] Station ID: [id number]
--- NOTE | 2022-07-18 17:22 | CT Report ---
PROCEDURE: CHEST WO INDICATIONS: ITS.REASON: CYSTIC FIBROSIS TECHNIQUE: Noncontrast 1mm axial images were acquired from the pulmonary apices to the posterior costophrenic an gles. Axial 5 mm soft tissue kernel reconstructions were performed as well as 8 mm axial MIP and cor onal and sagittal 5 mm reformations. For radiation dose reduction, the following was used: automate d exposure control, adjustment of mA and/or kV according to patient size. COMPARISON: None FINDINGS: Image quality: Excellent. Lungs and pleura: No acute air space opacities. A 0.7 cm pulmonary nodule is present within the cristina gula (series 4/image 144). Nodular radiopacities or pulmonary scarring is noted at the anterior lingu lar base (series 4/image 187). No bronchiectatic airways or mucus plugging visualized. No pleural eff usions or pneumothorax. Central and peripheral airways are patent and normal in caliber. Mediastinum: Heart size is normal. No pericardial effusion. No mediastinal adenopathy by size crit eria. Thoracic aorta and central pulmonary arteries are normal in size. Esophagus is normal in mayco evan. No hiatal hernia. Bones and chest wall: No suspicious bony lesions. No vertebral body compression fractures. No axil mikaela or supraclavicular adenopathy by size criteria. The thyroid is normal in size and there are no incidental findings. Abdomen: Visualized upper abdominal solid organs and bowel loops appear normal in the absence of con trast. IMPRESSION: 1. 7 mm lingular nodule and nodular radiopacities at the lingular base. No priors are available for c omparison at the time of this dictation. If prior comparisons are available, these can be compared to the current study and an addendum can be issued. If no prior studies are available, 3-6 month follow -up CT is recommended to ensure stability of these findings. Reviewed by: Hannah Giron MD on 07/18/2022 5:21 PM PDT Approved by: Hannah Grion MD on 07/18/2022 5:21 PM PDT Station ID: [id number]
--- NOTE | 2022-07-19 18:29 | DEXA Report ---
PROCEDURE: Dexa Spine and/or Hip INDICATIONS: ITS.REASON: CYSTIC FIBROSIS TECHNIQUE: Dual energy x-ray absorptiometry (DXA) was performed on a InSpa System. Regions measur ed are the AP Spine, femoral neck, and if needed forearm. COMPARISON: None. FINDINGS: Lumbar Spine: Bone Mineral Density 0.986 g/cm/cm,T score -1.6, osteopenia Left Hip: Bone Mineral Density 0.861 g/cm/cm,T score -1.2, osteopenia Left Femoral Neck: Bone Mineral Density 0.740 g/cm/cm, T score -2.1, osteopenia (T score greater or equal to -1.0: NORMAL) (T score from -1.1 to -2.4: OSTEOPENIA) (T score less than or equal to -2.5 to: OSTEOPOROSIS) Impression: Osteopenia. Patients with diagnosis of osteoporosis or osteopenia should have regular bone mineral density assess ment. For those eligible for Medicare, routine testing is allowed once every 2 years. Testing frequ ency can be increased for patients who have rapidly progressing disease or for those who are receivin g medical therapy to restore bone mass. Reviewed by: Pepe Moyre MD on 07/19/2022 6:27 PM PDT Approved by: Pepe Moyer MD on 07/19/2022 6:27 PM PDT Station ID: [id number]
== END 2022-07-18 15:20 | disposition home or self-care (01) ==
LOC: DI 15:19
PROVIDERS: ATTEND Internal Medicine Pulmonary Disease
DX: M85.89 Other specified disorders of bone density and structure, multiple sites (principal); E84.0 Cystic fibrosis with pulmonary manifestations; R91.1 Solitary pulmonary nodule; J32.9 Chronic sinusitis, unspecified; J34.2 Deviated nasal septum; E03.9 Hypothyroidism, unspecified
CPT/HCPCS: 36415; 84436; 84443

== ENCOUNTER 2022-07-18 16:01 | Outpatient (CLI) | payer BC ==
[2022-07-18 16:54] LABS: T4 (THYROXINE) 4.89 ug/dL (6.09-12.23)
[2022-07-18 16:58] LABS: THYROID STIMULATING HORMONE 15.56 uIU/mL (0.34-5.60)
== END 2022-07-18 16:02 | disposition home or self-care (01) ==
LOC: LAB 16:01
PROVIDERS: ATTEND Internal Medicine Pulmonary Disease
DX: E84.0 Cystic fibrosis with pulmonary manifestations (principal); E03.9 Hypothyroidism, unspecified
CPT/HCPCS: 36415; 84436; 84443

== ENCOUNTER 2023-02-05 09:20 | Outpatient (CLI) | payer BC ==
[2023-02-05 10:18] LABS: THYROID STIMULATING HORMONE 4.12 uIU/mL (0.34-5.60)
== END 2023-02-05 09:21 | disposition home or self-care (01) ==
LOC: LAB 09:20
PROVIDERS: ATTEND Internal Medicine Pulmonary Disease
DX: E84.0 Cystic fibrosis with pulmonary manifestations (principal); E03.9 Hypothyroidism, unspecified
CPT/HCPCS: 36415; 84443; 86376

== ENCOUNTER 2023-06-23 11:17 | Outpatient (CLI) | payer BC ==
[2023-06-23 11:54] LABS: THYROID STIMULATING HORMONE 6.44 uIU/mL (0.34-5.60)
== END 2023-06-23 11:18 | disposition home or self-care (01) ==
LOC: LAB 11:17
PROVIDERS: ATTEND Obstetrics & Gynecology
DX: N93.8 Other specified abnormal uterine and vaginal bleeding (principal)
CPT/HCPCS: 36415; 84439; 84443

== ENCOUNTER 2023-08-03 12:55 | Outpatient (CLI) | payer BC ==
--- NOTE | 2023-08-03 14:43 | Ultrasound Report ---
PROCEDURE: Pelvic w/Transvaginal INDICATIONS: AUB TECHNIQUE: Real-time scanning was performed of the pelvic organs, with image documentation. Additional endovagi nal scanning was necessary due to incomplete visualization of the adnexal and endometrial structures by transabdominal scanning. COMPARISON: None. FINDINGS: Uterus: Uterus is anteverted and normal in size at 9.9 x 4.1 x 6.0 cm. The myometrium is homogeneou s. The endometrium measures 13.7 mm in combined thickness. Right anterior intramural fibroid measur ing 8 x 6 x 10 mm. Ovaries: The right ovary measures 3 x 2.4 x 2.1 cm, with a calculated ovarian volume of 7.7 cc. The left ovary measures 3.0 x 1.5 x 1.7 cm, with a calculated ovarian volume of 4.1 cc. There is a reso lving right ovarian corpus luteal cyst measuring 1.9 cm. The ovaries have a normal sonographic appear ance. Less than 12 follicles can be seen in each ovary. No adnexal masses are seen. No cystic lesio ns measuring greater than 3 cm. Other: No pathologic free abdominal or pelvic fluid. IMPRESSION: 1.Intramural uterine fibroid measuring 10 mm. 2.Resolving right ovarian corpus luteal cyst measuring 1.9 cm. Reviewed by: Michael Figueroa MD on 08/03/2023 2:42 PM PDT Approved by: Michael Figueroa MD on 08/03/2023 2:42 PM PDT Station ID: [id number]
== END 2023-08-03 12:56 | disposition home or self-care (01) ==
LOC: DI 12:55
PROVIDERS: ATTEND Obstetrics & Gynecology
DX: D25.1 Intramural leiomyoma of uterus (principal); N83.11 Corpus luteum cyst of right ovary; N93.8 Other specified abnormal uterine and vaginal bleeding

== ENCOUNTER 2023-09-29 09:35 | Emergency (ER) | payer BC ==
[2023-09-29 10:04] VITALS: O2SAT 97
[2023-09-29 10:07] LABS: RAPID STREP SCREEN Negative (Negative)
[2023-09-29] MEDS ORDERED: CHERRY SYRUP 10 ML UDC PO ONE (10:15)
[2023-09-29] MEDS ORDERED: ACETAMINOPHEN 325 MG TABLET PO STA (10:15)
[2023-09-29] MEDS ORDERED: DEXAMETHASONE 10 MG/ML VIAL PO STA (10:15)
--- NOTE | 2023-09-29 10:17 | ED Physician Documentation ---
History of Present Illness - Stated complaint Stated Complaint: COUGH,SORE THROAT - Chief complaint Chief Complaint: Resp - Additonal information Additional information: Patient 37-year-old female presenting to the emergency department with chief complaints cough, congestion, sore throat, scratchy voice. Reports has been feeling generally unwell for several weeks but that got markedly worse 2 days ago. Reports multiple family members with similar symptoms. Has taken Tylenol and ibuprofen to help with her symptoms but none today. Additionally tried Mucinex yesterday with only minimal relief. 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: Other - Present Medications Home Medications: Ambulatory Orders Medication Instructions Recorded Confirmed Naltrexone HCl [Lotrexone] 0.7 mg PO DAILY 09/29/23 09/29/23 - Allergies Allergies/Adverse Reactions: Allergies Allergy/AdvReac Type Severity Reaction Status Date / Time No Known Drug Allergies Allergy Verified 09/29/23 09:47 - Social History Does the pt smoke?: No Smoking Status: Never smoker Does the pt drink ETOH?: No Does the pt have substance abuse?: No - Immunizations Immunizations are current?: Yes PD ED PE NORMAL - Vitals Vital signs reviewed: Yes - General General: Alert and oriented X 3, No acute distress - HEENT HEENT: Atraumatic, PERRL, Other (Erythematous posterior oropharynx) - Neck Neck: Supple, no meningeal sign, No bony TTP - Cardiac Cardiac: RRR - Respiratory Respiratory: No respiratory distress - Abdomen Abdomen: Normal bowel sounds - Female Female : Deferred - Rectal Rectal: Deferred - Back Back: No CVA TTP Results - Vitals Vitals: Vital Signs - 24 hr 09/29/23 09:42 Temperature 38.5 C H Heart Rate 99 Respiratory 18 Rate Blood Pressure 99/70 O2 Saturation 97 Oxygen O2 Source Room air - Labs Labs: Laboratory Tests 09/29/23 09/29/23 09:50 09:50 Nasal Adenovirus (PCR) NOT DETECTED Nasal B. parapertussis DNA (PCR) NOT DETECTED Nasal Coronavir 229E PCR NOT DETECTED Nasal Coronavir HKU1 PCR NOT DETECTED Nasal Coronavir NL63 PCR NOT DETECTED Nasal Coronavir OC43 PCR NOT DETECTED Nasal Enterovir/Rhinovir PCR NOT DETECTED Nasal Influenza B PCR NOT DETECTED Nasal Influenza A PCR NOT DETECTED Nasal Parainfluen 1 PCR NOT DETECTED Nasal Parainfluen 2 PCR NOT DETECTED Nasal Parainfluen 3 PCR NOT DETECTED Nasal Parainfluen 4 PCR NOT DETECTED Nasal RSV (PCR) NOT DETECTED Nasal B.pertussis DNA PCR NOT DETECTED Nasal C.pneumoniae (PCR) NOT DETECTED Vasu Human Metapneumo PCR NOT DETECTED Nasal M.pneumoniae (PCR) NOT DETECTED Nasal SARS-CoV-2 (PCR) DETECTED A Group A Strep Rapid Negative PD Medical Decision Making - ED course Complexity details: reviewed results, re-evaluated patient, d/w patient ED course: Patient 37-year-old female presenting to the emergency department with cough, congestion, sore throat. Afebrile, hemodynamic stable arrival to the emergency department. Some upper airway congestion and obvious laryngitis noted on exam. Clear aeration in all lung parsons. Strep Swab negative. Respiratory viral panel positive for SARS COVID virus. Discussion had with patient concerning the SARS COVID virus, its expected course. Discussed risk and benefits of Paxlovid as well as best current data on its use. At this time patient is not interested in this intervention. Will discharge for follow-up with primary care as needed. Discussed [id number] medications that can be used to help with her symptoms prior to discharge. Discussed return precautions prior to discharge. Departure - Departure Disposition: 01 Home, Self Care Clinical Impression: COVID-19 Instructions: ED Viral Syndrome Comments: Thank you for allowing us to care for you today at [facility]. Today in the emergency department you tested positive for the SARS COVID virus. Please Quarantine per current CDC guidelines. Please drink plenty fluids and get plenty of rest. Please reach out to your primary care doctor for follow-up appointment the next few days. If it anytime you develop any new or worsening symptoms such as worsening shortness of breath or labored breathing please return to the emergency department. Forms: PCP List
[2023-09-29 10:54] LABS: B. PARAPERTUSSIS- RESP PCR PAN NOT DETECTED; B. PERTUSSIS- RESP PCR PANEL NOT DETECTED; C. PNEUMONIAE- RESP PCR PANEL NOT DETECTED; CORONAVIRUS 229E-RESP PCR NOT DETECTED; CORONAVIRUS HKU1-RESP PCR NOT DETECTED; CORONAVIRUS NL63-RESP PCR NOT DETECTED; CORONAVIRUS OC43-RESP PCR NOT DETECTED; HUMAN METAPNEUMOVIRUS NOT DETECTED; INFLUENZA A- RESP PCR PANEL NOT DETECTED; INFLUENZA B - RESP PCR PANEL NOT DETECTED; M. PNEUMONIAE- RESP PCR PANEL NOT DETECTED; PARAINFLUENZA VIRUS 1 NOT DETECTED; PARAINFLUENZA VIRUS 2 NOT DETECTED; PARAINFLUENZA VIRUS 3 NOT DETECTED; PARAINFLUENZA VIRUS 4 NOT DETECTED; RHINOVIRUS/ENTEROVIRUS NOT DETECTED; RSV- RESP PCR PANEL NOT DETECTED
[2023-09-29 10:56] LABS: SARS-CoV-2 -RESP PCR PANEL DETECTED
[2023-09-29 11:30] VITALS: BP 97/57
== END 2023-09-29 11:24 | disposition home or self-care (01) ==
LOC: ED 09:35
DX: U07.1 COVID-19 (principal); J02.9 Acute pharyngitis, unspecified; R09.81 Nasal congestion; R50.9 Fever, unspecified; M79.10 Myalgia, unspecified site
CPT/HCPCS: 87070; 87430; 87633; 99283; A9270

== ENCOUNTER 2024-02-12 15:08 | Outpatient (CLI) | payer OTHER ==
--- NOTE | 2024-02-15 09:29 | Mammography Report ---
BILATERAL DIGITAL SCREENING MAMMOGRAM 3D/2D: 02/12/2024 CLINICAL: Routine screening. Baseline exam. No prior exams were available for comparison. Both breasts are heterogeneously dense, which may obscure small masses (category c / 51-75% glandular tissue). No significant masses, calcifications, or other findings are seen in either breast. IMPRESSION: NEGATIVE There is no mammographic evidence of malignancy. A 1 year screening mammogram is recommended. Based on the Tyrer Cuzick model (a risk assessment model) the patient's lifetime risk is 16.8% and he r 10 year risk is 2.2%. According to the ACR, ACS, and NCCN guidelines, an annual breast MRI exam marsha ng with mammogram is recommended if the patient's lifetime risk is 20% or greater. This exam was interpreted at Station ID: [id number]. NOTE: For mammograms, a report in lay terms will be sent to the patient. Approximately 15% of breast malignancies will not be visualized mammographically. In the management of a palpable breast mass, a negative mammogram must not discourage biopsy of a clinically suspicious lesion. Electronically Signed By: Cresencio Alegria M.D. [facility]:02/12/2024 16:54:59 ACR BI-RADS Category 1: Negative 3341F PARENCHYMAL PATTERN: (D) - The breast(s) demonstrate(s) heterogeneously dense fibroglandular paranthonyy ma. BI-RADS CATEGORY: (1) - 1 RECOMMENDATION: (ANNUAL) - Recommend routine annual screening mammography. [id number] 1 year screening LATERALITY: (B)
== END 2024-02-12 15:09 | disposition home or self-care (01) ==
LOC: DI 15:08
PROVIDERS: ATTEND Nurse Practitioner
DX: Z12.31 Encounter for screening mammogram for malignant neoplasm of breast (principal); R92.333 Mammographic heterogeneous density, bilateral breasts